=== PATIENT | male | born 1990 | race Caucasian/White ===

== ENCOUNTER 2017-04-13 11:18 | Emergency (ER) | payer OTHER ==
[2017-04-13 20:02] LABS: Hepatitis C IgG Antibody Non-Reactive (Non-Reactive)
[2017-04-13 20:24] LABS: HIV AB P24 Non-Reactive (Non-Reactive); HIV P24 AG Non-Reactive (Non-Reactive)
[2017-04-13 20:51] LABS: Hepatitis B Surface AB- Quant 3.9 mIU/mL
--- NOTE | 2017-04-15 06:09 | CDI ---
Documentation Clarification OP Dear CAROLYNE. Karla HAYES, PAC Please do addendum of ED physician document. Thank you, Alejandra Echeverria Snuff Drier If you have any question, Please contact marketing program manager at [phone] [facility]
--- NOTE | 2017-04-16 20:11 | ED ---
Medical Decision Making - Medical Decision Making This charting was completed during downtime. You will find paper document regarding care. - Lab Data Lab Results 04/13/17 04/13/17 Range/Units 12:14 12:14 Hep Bs Antibody Non-Reactive (Non-Reactive) Hep Bs Antibody, Quant 3.9 mIU/mL Hep C IgG Ab Non-Reactive (Non-Reactive) HIV-1 Antibody Non-Reactive (Non-Reactive) HIV Ag/Ab Interpret (()) HIV p24 Antibody Non-Reactive (Non-Reactive) HIV-2 Antibody Non-Reactive (Non-Reactive) HIV P24 Antigen Non-Reactive (Non-Reactive) Disposition Clinical Impression: Exposure to blood-borne pathogen Disposition: HOME SELF-CARE Condition: Stable Instructions: Body Substance Exposure (ED) Referrals: Lenard Jamison MD [Primary Care Provider] - 1-2 days
== END 2017-04-13 12:59 | disposition home or self-care (01) ==
LOC: EC 11:18
DX: Z77.21 Contact with and (suspected) exposure to potentially hazardous body fluids (principal); Z88.0 Allergy status to penicillin; X58.XXXA Exposure to other specified factors, initial encounter; Y99.0 Civilian activity done for income or pay
CPT/HCPCS: 36415; 86706; 86803; 87390; 99282

== ENCOUNTER 2018-04-01 14:13 | Emergency (ER) | payer BC, OTHER ==
[2018-04-01 14:50] VITALS: RESP 18; TEMP 99
[2018-04-01] MEDS ORDERED: ACETAMINOPHEN TAB 325 MG TAB PO STA (15:08)
--- NOTE | 2018-04-01 15:47 | ED ---
Lower Extremity Injury HPI - General Chief Complaint: Extremity Injury, Lower Stated Complaint: Toe Fx Time Seen by Provider: 04/01/18 14:44 Source: patient Mode of arrival: ambulatory Limitations: no limitations - History of Present Illness Initial Comments: 27 year-old male denies past medical history presents today for chief complaint of right fourth digit pain. Patient states that he was running around the house this morning when he stubbed his right fourth toe. Patient states he is able to ambulate however there is pain in that digit and at the base of the digit, pt denies forefoot pain. He denies any numbness tingling loss sensation coolness or pallor of the digit. Patient does admit to gross deformity with deviation towards the right. Patient denies any open lacerations. Patient's tetanus up-to-date. Patient able to upon arrival appearing well denies fall. Remaining ROS (-), patient denies any recent fever, chills, shortness of breath , chest pain, back pain, abdominal pain, nausea or vomiting, numbness or tingling, dysuria or hematuria, constipation or diarrhea, headaches or visual changes, or any other complaints. - Related Data Home Medications Medication Instructions Recorded Confirmed No Known Home Medications 04/01/18 04/01/18 Allergies Allergy/AdvReac Type Severity Reaction Status Date / Time Penicillins Allergy Unknown Verified 04/01/18 15:11 Review of Systems ROS Statement: Those systems with pertinent positive or pertinent negative responses have been documented in the HPI. ROS Other: All systems not noted in ROS Statement are negative. Past Medical History Past Medical History: No Reported History History of Any Multi-Drug Resistant Organisms: None Reported Past Surgical History: Hernia Repair Past Psychological History: No Psychological Hx Reported Smoking Status: Never smoker Past Alcohol Use History: None Reported Past Drug Use History: None Reported General Exam - General Exam Comments Initial Comments: General: The patient is awake and alert, in no distress, and does not appear acutely ill. Eye: Pupils are equal, round and reactive to light, extra-ocular movements are intact. No nystagmus. There is normal conjunctiva bilaterally. No signs of icterus. Ears, nose, mouth and throat: There are moist mucous membranes and no oral lesions. Neck: The neck is supple, there is no tenderness or JVD. Cardiovascular: There is a regular rate and rhythm. No murmur, rub or gallop is appreciated. Respiratory: Lungs are clear to auscultation, respirations are non-labored, breath sounds are equal. No wheezes, stridor, rales, or rhonchi. Gastrointestinal: Soft, non-distended, non-tender abdomen without masses or organomegaly noted. There is no rebound or guarding present. No CVA tenderness. Bowel sounds are unremarkable. Musculoskeletal: Gross deviation to the right. Pt is unable to fully range at the 4 right digit. Strength 5/5. Sensation intact of the digits of the right foot including distal to the injury. Radial and DP pulses equal bilaterally 2+. Capillary refill < 2 seconds. Neurological: A&O x 3. CN II-XII intact, There are no obvious motor or sensory deficits. Coordination appears grossly intact. Speech is normal. Skin: Skin is warm and dry and no rashes or lesions are noted. Psychiatric: Cooperative, appropriate mood & affect, normal judgment. Limitations: no limitations Course Vital Signs 04/01/18 14:48 Temperature 99.0 F Pulse Rate 88 Respiratory 18 Rate Blood Pressure 121/72 O2 Sat by Pulse 98 Oximetry Medical Decision Making - Medical Decision Making Patient neurovascularly intact. There is gross deviation of the fourth right toe. Patient received a local nerve block. Digital block of the fourth right digit and fracture reduced and piero taped. Pt given tylenol for pain mgmt at this time I feel pt it stable for discharge with orthopedic surgery evaluation. Return parameters discussed at length the patient who verbalizes understanding. Patient denies questions at this time. Pt discharged appearing well. Case discussedwith Dr. Jones prior to discharge who reviewed imaging studies, Disposition Clinical Impression: Toe fracture, right Disposition: HOME SELF-CARE Condition: Good Instructions (If sedation given, give patient instructions): Toe Fracture (ED) Additional Instructions: Please use medication as discussed. Please follow-up with orthopedic surgery in the next 1-2 days. Please return to emergency room if the symptoms increase or worsen or for any other concerns. Is patient prescribed a controlled substance at d/c from ED?: No Referrals: Lenard Jamison MD [Primary Care Provider] - 1-2 days Varghese Carrion DO [Medical Doctor] - 1-2 days Time of Disposition: 16:37
[2018-04-01] MEDS ORDERED: LIDOCAINE 1% INJ 10MG/ML (20 ML MDV) SQ ONE (15:49)
--- NOTE | 2018-04-01 16:21 | XR ---
EXAMINATION TYPE: XR foot limited RT DATE OF EXAM: 04/01/2018 COMPARISON: None HISTORY: Deformity fourth digit, injury, pain TECHNIQUE: Two-view right foot FINDINGS: There is a transverse fracture through the proximal phalanx proximal metaphysis fourth digi t. Mild soft tissue swelling is present to this region. There is varus deformity of the fracture frag ment. IMPRESSION: 1. Transverse fracture proximal metaphysis proximal phalanx fourth digit with soft tissue swelling o f the digit. There is lateral angulation of the distal fracture fragment.
[2018-04-01 17:03] VITALS: BP 118/76; PULSE 76
--- NOTE | 2018-04-01 17:21 | XR ---
EXAMINATION TYPE: XR foot limited RT DATE OF EXAM: 04/01/2018 COMPARISON: 04/01/2018 earlier exam HISTORY: Fracture fourth digit TECHNIQUE: 2 view right foot FINDINGS: There appears to be reduction of the fracture of the proximal fourth digit. Alignment and p ositioning appears near-anatomic. Soft tissue swelling remains over the fourth digit. IMPRESSION: 1. Reduction of previous transverse fracture fourth digit right foot proximal phalanx.
== END 2018-04-01 17:02 | disposition home or self-care (01) ==
LOC: EC 14:13
DX: S92.511A Displaced fracture of proximal phalanx of right lesser toe(s), initial encounter for closed fracture (principal); Z88.0 Allergy status to penicillin; W22.8XXA Striking against or struck by other objects, initial encounter
CPT/HCPCS: 73620; 99283; 64450; J2001